=== PATIENT | female | born 1985 | race Caucasian/White ===

== ENCOUNTER 2018-11-19 14:39 | Inpatient (IN) | payer OTHER ==
[2018-11-19] MEDS ORDERED: Ondansetron PF 4 MG/2 ML Vial IVP PRN (14:51)
[2018-11-19] MEDS ORDERED: Promethazine HCl 25 MG/ML VIAL IM/IV PRN (14:51)
[2018-11-19 15:57] VITALS: BMI 26.3
[2018-11-19] MEDS ORDERED: Morphine 2 MG/ML SYRINGE SLOW IVP PRN (16:12)
[2018-11-19 16:37] LABS: #Basophils 0.1 thou/uL (0.0-0.2); #Eosinphils 0.1 thou/uL (0.0-0.7); #Lymphocytes 3.6 thou/uL (1.20-3.40); #Monocytes 0.5 thou/uL (0.11-0.59); #Neutrophils 4.1 thou/uL (1.40-6.50); %Basophils 0.9 % (0.0-1.0); %Lymphocytes 43.5 % (21.0-51.0); %Monocytes 5.4 % (0.0-10.0); %Neutrophils 49.2 % (42.0-75.0); Hemoglobin 13.4 g/dL (12.0-16.0); Mean Corpuscular HGB CONC 33.3 g/dL (32.0-36.0); Mean Corpuscular Hemoglobin 31.8 pg (27.0-31.0); Mean Corpuscular Volume 95.5 fL (78.0-98.0); Mean Platelet Volume 7.3 fL (7.4-10.4); Platelet Count 314 thou/uL (130-400); RBC Distribution Width 11.8 % (11.5-14.5); Red Blood Cell (RBC) Count 4.22 mill/uL (4.20-5.40); White Blood Cell (WBC) Count 8.3 thou/uL (4.8-10.8)
[2018-11-19 17:04] LABS: ALT (SGPT) 35 U/L (8-55); AST (SGOT) 30 U/L (5-34); Albumin 4.4 g/dL (3.5-5.0); Alkaline Phosphatase 91 U/L (40-150); Anion Gap 16 mmol/L (10-20); BUN (Urea Nitrogen) 12 mg/dL (7.0-18.7); Bilirubin, Direct 0.2 mg/dL (0.1-0.3); Bilirubin, Total 0.5 mg/dL (0.2-1.2); Calc. Creatinine Clearance 117 mL/min (70-130); Calcium 9.6 mg/dL (7.8-10.44); Carbon Dioxide 24 mmol/L (22-29); Chloride 100 mmol/L (98-107); Estimated GFR-MDRD 80; Globulin 3.1 g/dL (2.4-3.5); Glucose 80 mg/dL (70-105); Lipase 52 U/L (8-78); Potassium 3.8 mmol/L (3.5-5.1); Protein, Total 7.5 g/dL (6.0-8.3); Sodium 136 mmol/L (136-145)
[2018-11-19] MEDS: D5 1/2 NS w/20 mEq KCL 1,000 ML IV SCH (17:39)
[2018-11-19] MEDS ORDERED: cefOXitin 2 GM in Sodium Chloride 0.9% 100 ML IVPB SCH (17:45)
[2018-11-19] MEDS: traZODone HCl 50 MG TAB PO SCH (22:51)
--- NOTE | 2018-11-19 23:43 | CON ---
DATE OF CONSULTATION: 11/19/2018 REQUESTING PHYSICIAN: Dr. Dennis Hanson. REASON FOR CONSULTATION: Choledocholithiasis. HISTORY OF PRESENT ILLNESS: Freda Lin is a very pleasant 33-year-old woman with a history of sleeve gastrectomy in March 2018, which was uncomplicated. She did very well after this. She has no other history of prior abdominal surgeries. She is otherwise healthy. For the past few weeks, she has intermittently been having significant abdominal pain in the epigastrium and right upper quadrant after certain meals like fatty or greasy meals. Yesterday, pain onset was fairly sudden and quite severe, the worst that she has ever had it was associated with nausea. She went to the [facility]. There she had laboratory studies, which evidently showed elevation in LFTs. I do not have those results available at this time. Labs here are pending. She also had both ultrasound and CT imaging, I do see those reports. The CT scan of the abdomen and pelvis did not show any acute processes. However, the ultrasound of the abdomen demonstrated cholelithiasis as well as a 5-6 mm stone visualized in the common bile duct. The patient was discharged from the ER and saw Dr. Hanson in clinic today. He is admitting her for further evaluation and treatment. I am consulted due to this finding of choledocholithiasis. The patient says that today she is feeling a bit better than yesterday, but she attributes this to pain medication. 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 She is not visibly jaundiced and she is afebrile. PAST MEDICAL HISTORY: Sleeve gastrectomy in March 2018. ALLERGIES: SULFA. OUTPATIENT MEDICATIONS: Trazodone oral. SOCIAL HISTORY: She is a former smoker. Alcohol use is occasional. FAMILY HISTORY: Noncontributory. REVIEW OF SYSTEMS: Full review of systems including constitutional, head, eyes, ears, nose, throat, GI, , cardiovascular, respiratory, musculoskeletal, neurologic systems is negative except as noted in the HPI. PHYSICAL EXAMINATION: VITAL SIGNS: Temperature 98.2, pulse 58, blood pressure 127/81, 100% oxygen saturation on room air. GENERAL: A 33-year-old woman sitting up in bed comfortably, in no distress. SKIN: No jaundice, no rashes were palpable. EYES: No scleral icterus. Extraocular movements intact. ENT: Mucous membranes moist. No oral lesions. LYMPH: No submandibular or supraclavicular lymphadenopathy. Thyroid, nontender to palpation. HEART: Regular rate and rhythm. LUNGS: Clear to auscultation bilaterally. ABDOMEN: Bowel sounds are present. Soft. She is tender to palpation in the epigastrium and right upper quadrant, but no guarding, rebound or tenderness. EXTREMITIES: No peripheral edema. VESSELS: Radial pulses 2+ bilaterally. NEUROLOGIC: Cranial nerves 2-12 intact bilaterally. No focal deficits. LABORATORY STUDIES: We are waiting initial laboratories of this admission including CBC, CMP, amylase and lipase. Evidently laboratory studies from yesterday in [facility] demonstrated elevation in LFTs. IMAGING STUDIES: CT of the abdomen and pelvis and abdominal ultrasound from the [facility], is detailed in the HPI. I personally reviewed the reports. Abdominal ultrasound showed cholelithiasis and a 5-6 mm stone within the common bile duct. ASSESSMENT/PLAN: 1. Choledocholithiasis. 2. Elevated liver function tests. The patient has clear imaging evidence of choledocholithiasis. This is in conjunction with characteristic symptoms of biliary colic and evidently liver function tests elevation. Clinically, she is stable. I discussed that she is going to need endoscopic retrograde cholangiopancreatography for clearance of the bile duct, and she is also going to need a cholecystectomy. We discussed the risks and benefits of endoscopic retrograde cholangiopancreatography. Risk includes post endoscopic retrograde cholangiopancreatography pancreatitis. The patient expresses understanding and desires to proceed. We will plan for endoscopic retrograde cholangiopancreatography tomorrow. Timing of cholecystectomy to be determined by the surgical service. Thank you for the consultation. Please call anytime with questions or concerns. Job ID: [id number]
[2018-11-20] MEDS: D5 1/2 NS w/20 mEq KCL 1,000 ML IV SCH ×3 (00:26→09:23)
[2018-11-20] MEDS ORDERED: cefOXitin 2 GM VIAL ONE (12:36)
[2018-11-20] MEDS ORDERED: Sodium Chloride 0.9% 100 ML ONE (12:36)
[2018-11-20] MEDS ORDERED: Bupivacaine/Epinephrine 0.25% 30 ML VIAL ONE (13:47)
[2018-11-20] MEDS ORDERED: Iothalamate Meglumine 60% 50 ML VIAL FS ONE (13:47)
[2018-11-20] MEDS ORDERED: Midazolam HCl 2 mg/2 ml Vial ONE (13:49)
[2018-11-20] MEDS ORDERED: Fentanyl 100 MCG/2 ML VIAL ONE ×5 (13:49→16:09)
[2018-11-20] MEDS ORDERED: Ondansetron PF 4 MG/2 ML Vial ONE ×2 (15:02→16:29)
[2018-11-20] MEDS ORDERED: hydrALAZINE 20 MG/ML VIAL SLOW IVP PRN (15:06)
[2018-11-20] MEDS ORDERED: Promethazine HCl 25 MG/ML VIAL IM PRN ×2 (15:06→16:26)
[2018-11-20] MEDS ORDERED: Ondansetron PF 4 MG/2 ML Vial IVP PRN (15:06)
[2018-11-20] MEDS ORDERED: Mag-Al 1200 mg/1200 mg/30 ML UDCUP PO PRN (15:06)
[2018-11-20] MEDS ORDERED: Dextrose 5% in Water 1,000 ML IV PRN (15:06)
[2018-11-20] MEDS ORDERED: Calcium Carbonate 500 MG ChewTAB PO PRN (15:06)
[2018-11-20] MEDS ORDERED: Dextrose 50% Abboject 50 ML SYRINGE SLOW IVP PRN (15:06)
[2018-11-20] MEDS ORDERED: Morphine 4 MG/ML VIAL SLOW IVP PRN (15:06)
[2018-11-20] MEDS ORDERED: HYDROcodone/Acetaminophen 10/325 mg Tablet PO PRN ×2 (15:06)
[2018-11-20] MEDS ORDERED: Morphine 2 MG/ML SYRINGE SLOW IVP PRN (15:33)
[2018-11-20] MEDS ORDERED: Morphine 4 MG/ML VIAL ONE (15:49)
[2018-11-20] MEDS ORDERED: HYDROmorphone 2 MG/ML VIAL ONE (16:00)
[2018-11-20] MEDS ORDERED: Ketorolac Tromethamine 30 MG/ML VIAL ONE (16:09)
[2018-11-20] MEDS ORDERED: Promethazine HCl 25 MG/ML VIAL SLOW IVP PRN (16:26)
[2018-11-20] MEDS ORDERED: Ondansetron HCl/PF 4 MG/2 ML Vial IVP PRN (16:26)
[2018-11-20] MEDS ORDERED: Rocuronium Bromide 10 MG/ML (10ML VIAL) ONE (16:29)
[2018-11-20] MEDS ORDERED: Lidocaine 1% PF 5 ML VIAL ONE (16:29)
[2018-11-20] MEDS ORDERED: Glycopyrrolate 0.2 MG/ML 5 ML SYRINGE ONE (16:29)
[2018-11-20] MEDS ORDERED: PROPOFOL 200 MG/20 ML VIAL ONE (16:29)
[2018-11-20] MEDS ORDERED: Ketorolac Tromethamine 30 MG/ML VIAL IVP SCH (18:00)
[2018-11-20 20:13] VITALS: BP 116/77; TEMP 98.3
[2018-11-20] MEDS: traZODone HCl 50 MG TAB PO SCH (20:40)
[2018-11-20] MEDS ORDERED: Famotidine/PF 20 mg/2ml Vial SLOW IVP SCH (21:00)
[2018-11-20] MEDS ORDERED: Famotidine 20 MG TAB PO SCH (21:00)
[2018-11-21] MEDS ORDERED: Enoxaparin Sodium 40 MG/0.4 ML SYRINGE SC SCH (09:00)
--- NOTE | 2018-11-23 10:08 | OP ---
DATE OF PROCEDURE: 11/20/2018 PREOPERATIVE DIAGNOSES: Cholelithiasis with possible common bile duct stone. PROCEDURE PERFORMED: Laparoscopic cholecystectomy with cholangiogram. INDICATIONS: The patient is a 33-year-old female, who presented with severe epigastric and right upper quadrant pain at an outside hospital in [place]. There, they did an ultrasound showing cholelithiasis as well as what they said was a common bile duct stone. When she got here, the pain was better and her liver function tests were normal. FINDINGS: Normal cholangiogram. DESCRIPTION OF PROCEDURE: After informed consent was obtained, the patient was taken to the operating room and given general endotracheal anesthesia. She was placed in supine position. Abdomen was prepped and draped in usual fashion. Local anesthesia infiltrated subcutaneously and deep. Subumbilical incision was performed. Subcu divided sharply. Fascia was grasped with two stay sutures of 0 Vicryl, placed in each side of midline. Midline incised. Digital palpation revealed no local adhesions. A blunt 12 mm trocar inserted. Pneumoperitoneum was created to a pressure of 15 mmHg. A 0-degree laparoscope was inserted under direct vision. Three 5 mm ports were placed subcostally. The gallbladder was grasped and advanced superiorly. The peritoneum lysed distally to expose the cystic duct, cystic artery in critical view. A clip was placed at the base of the gallbladder on the cystic duct and incision was made in the cystic duct and an Arrow cholangiocatheter inserted. Intraoperative cholangiogram was performed utilizing fluoroscopy. This showed free flow into the duodenum. No filling defects. Normal intrahepatic ducts. The catheter removed and the duct was triply ligated with hemoclips and divided. The artery was triply ligated with hemoclips and divided. The gallbladder removed from its fossa utilizing electrocautery, removed from the abdomen in an endosac through the umbilical port. The abdomen irrigated. Irrigation fluid removed. Hemostasis assured. Trocars and retractors removed. The fascia closed with interrupted 2-0 Vicryl. The skin closed with interrupted 4-0 Rapide. Dermabond applied. The patient tolerated the procedure well and transferred to Recovery in good condition. Sponge and needle count verified correct x2. Job ID: [id number]
--- NOTE | 2018-11-24 12:01 | RAD ---
"PRELIMINARY REPORT" Intraoperative cholangiogram INDICATION: Cholangiogram; cholecystectomy; evaluate for common bile duct stones FINDINGS: Single submitted intraoperative fluoroscopic image demonstrates retrograde opacification of the common bile duct and intrahepatic ducts. No visible filling defect is evident. No extravasation is noted. Contrast is seen to flow into the duodenum. Total fluoroscopic time was 2 sec onds. Total exposure was 0.32 mGy. IMPRESSION: No intraluminal filling defect to suggest retained common bile duct stone. Transcribed Date/Time: 11/24/2018 12:01 PM
== END 2018-11-20 21:45 | disposition home or self-care (01) | DRG 419 ==
LOC: SURG B 14:39
PROVIDERS: ADMIT Surgery; ATTEND Surgery
PROC: 0FT44ZZ Resection of Gallbladder, Percutaneous Endoscopic Approach (ICD-10-PCS; principal; 2018-11-20)
PROC: BF13YZZ Fluoroscopy of Gallbladder and Bile Ducts using Other Contrast (ICD-10-PCS; 2018-11-20)
DX: K80.70 Calculus of gallbladder and bile duct without cholecystitis without obstruction (principal); Z79.899 Other long term (current) drug therapy; Z88.2 Allergy status to sulfonamides; Z87.891 Personal history of nicotine dependence
CPT/HCPCS: 47532; 80053; 80076; 82150; 83690; 85025; 88304; J0694; J1170; J1885; J2001; J2250; J2270; J2405; J2704; J3010; J3490; Q9961